=== PATIENT | male | born 1935 | race Caucasian/White ===

== ENCOUNTER → 2022-05-14 | Outpatient (CLI) | payer MEDICARE, OTHER | END | disposition home or self-care (01) | LOC: NM 08:31 | PROVIDERS: ATTEND Internal Medicine Hematology & Oncology | DX: C67.1 Malignant neoplasm of dome of bladder (principal); M41.86 Other forms of scoliosis, lumbar region; M47.816 Spondylosis without myelopathy or radiculopathy, lumbar region | CPT/HCPCS: 78306; A9503 ==